=== PATIENT | female | born 1950 | race Hispanic/Latino ===

== ENCOUNTER 2018-02-12 18:35 | Emergency (ER) | payer BC, OTHER ==
[2018-02-12] MEDS ORDERED: KETOROLAC TROMETHAMINE 30MG/ML ONE (19:04)
[2018-02-12] MEDS ORDERED: ACETAMINOPHEN-CODEINE ELIXIR 5 ML UDCUP ONE (19:04)
== END 2018-02-12 19:57 | disposition home or self-care (01) ==
LOC: EDH 18:35
DX: M19.012 Primary osteoarthritis, left shoulder (principal); E07.9 Disorder of thyroid, unspecified; I10 Essential (primary) hypertension; E11.9 Type 2 diabetes mellitus without complications; Z98.890 Other specified postprocedural states
CPT/HCPCS: 73030; 96372; 99284; J1885

== ENCOUNTER → 2024-06-19 | Outpatient (CLI) | payer OTHER ==
[~2024-06-19] MED LIST: AMLO2.5T4 PO; ATEN25TA PO; DAPA5TAB PO; EZET10TA48 PO; HYDR12.54 PO; HYDR200T75 PO; LATA2.5D14 OU; LEVO88TA7 PO; LISI20TA24 PO; ROSU20TA98 PO; TIZA-194 PO
== END | disposition home or self-care (01) ==
LOC: RAH 14:26
PROVIDERS: ATTEND Internal Medicine
DX: M81.0 Age-related osteoporosis without current pathological fracture (principal)
CPT/HCPCS: 77080

== ENCOUNTER → 2025-03-27 | Outpatient (CLI) | payer OTHER ==
[~2025-03-27] MED LIST changes: +AMOX1TAB16 PO; -LATA2.5D14 OU; +LATA2.5D7 OU
== END | disposition home or self-care (01) ==
LOC: RAH 07:43
PROVIDERS: ATTEND Family Medicine
DX: Z12.31 Encounter for screening mammogram for malignant neoplasm of breast (principal)
CPT/HCPCS: 77067